=== PATIENT | male | born 1975 | race Caucasian/White ===

== ENCOUNTER 2021-01-08 08:36 | Day surgery (SDC) | payer BC ==
[2021-01-08] MEDS ORDERED: propofoL 200 MG/20 ML VIAL IV ONE (08:59)
[2021-01-08] MEDS ORDERED: LIDOCAINE 1% MPF 5 ML VIAL ONE (08:59)
[2021-01-08] MEDS ORDERED: FENTANYL CITR 100 MCG/2 ML ONE ×2 (08:59→10:05)
[2021-01-08] MEDS ORDERED: MIDAZOLAM HCL 2 MG/2 ML INJ ONE ×2 (08:59→10:35)
[2021-01-08] MEDS ORDERED: dexAMETHasone 10 MG/ML VIAL ONE (08:59)
[2021-01-08] MEDS ORDERED: BUPIVACA 0.25%/EPI 0.0005% MDV 50 ML VIAL ONE (09:04)
[2021-01-08] MEDS ORDERED: CEFAZOLIN/SWI 1gm 1 GM/10 ML SYR ONE (09:07)
[2021-01-08] MEDS ORDERED: Ringers Lactate 1,000 ML IV ONE (09:07)
--- NOTE | 2021-01-08 10:15 | P.OP ---
Preoperative diagnosis: Incarcerated Umbilical Hernia Postoperative diagnosis: Incarcerated Umbilical Hernia Primary procedure: Open Umbilical Hernia Repair with mesh Anesthesia: GETA + Local Estimated blood loss: <10cc Specimen: hernia contents - adipose Findings: Incarcerated Umbilical Hernia ~2cm in size Complications: None Implants: 4.3 cm Bard Ventralex mesh Transferred to: Recovery Room Condition: Good
[2021-01-08] MEDS ORDERED: KETOROLAC 30 MG/ML INJ ONE (10:18)
--- NOTE | 2021-01-08 10:51 | OP ---
Date of Procedure: 01/08/2021 Surgeon: Ellis Rick MD, Preoperative Diagnosis: Incarcerated umbilical hernia. Postoperative Diagnosis: Incarcerated umbilical hernia. Procedure Performed: Open umbilical hernia repair with mesh. Anesthesia: General endotracheal plus local with 0.25% Marcaine with epinephrine. Estimated Blood Loss: Less than 10 mL. Specimens: Hernia contents, adipose tissue. Findings: Incarcerated umbilical hernia approximately 2 cm in size. Complications: None. Implants: 4.3 cm Bard Ventralex mesh. Disposition: The patient was transferred to the recovery room in good condition. Procedure In Detail: After informed consent was obtained, the patient was brought to the operating r oom, prepped and draped in the usual sterile fashion after adequate anesthesia achieved. An infraumb ilical area was anesthetized with 0.25% Marcaine and sharply incised in a curvilinear fashion inferio r to the umbilicus down to subcutaneous tissue with a 15 blade. Electrocautery was used to dissect d own through subcutaneous tissues and blunt dissection continued down to dissect circumferentially eden und the incarcerated umbilical hernia which had adipose tissue contained within. The dissection cont inued down bluntly to the layer of the fascia. The hernia sac was then opened at this point and adip ose tissue was appreciated. This was irreducible at this point and as such, it was ligated and sent off for pathologic examination as debridement tissue. At this point, I was able to reduce the hernia back to the preperitoneal space. I removed the open hernia sac in its entirety at this point and I dissected down into the preperitoneal space using digital manipulation. I was able to push the prepe ritoneal fat back circumferentially around and with combination of electrocautery and blunt dissectio n, I was able to clear landing zone for approximately 4.3 cm Bard Ventralex mesh. After the preperit umana space was finger swept clean, there was no bleeding or hemostatic required. I then brought the 4.3 cm Bard Ventralex mesh onto the field and securing it circumferentially with 4-0 PDS sutures cir cumferentially around the 2 cm opening in a parachute fashion. I then placed the mesh in the preperi toneal position and tied down the sutures at this point. The mesh was in good apposition to the ante rior abdominal wall. At this point, I closed the fascia overlying this mesh with a running 0 P[address] sut ure in a running fashion with good apposition and approximation of tissues. I then cut to sail/strap of the mesh at this point and irrigated the area copiously. I then closed the dermal layer with int errupted 3-0 Vicryl sutures and closed the skin with 4-0 Monocryl in a running fashion. Dermabond wa s placed over top. The patient tolerated the procedure well without any evidence of complication and transferred to PACU in good condition. All counts were correct at the end of the case. JESSICA/RONALD Voice ID: [id number] Report ID: [id number]
[2021-01-08] MEDS ORDERED: MORPHINE 4 MG/ML SYR ONE (11:01)
[2021-01-08 11:42] VITALS: TEMP 97.1
[2021-01-08] MEDS ORDERED: HYDROCODONE/APAP 7.5/325 MG TAB ONE (11:45)
[2021-01-08 12:06] VITALS: O2SAT 98
[2021-01-08 12:31] VITALS: BP 118/60
== END 2021-01-08 12:25 | disposition home or self-care (01) ==
LOC: OR 08:36
PROVIDERS: ATTEND Surgery
PROC: 0WUF0JZ Supplement Abdominal Wall with Synthetic Substitute, Open Approach (ICD-10-PCS; principal; 2021-01-08 10:30)
DX: K42.0 Umbilical hernia with obstruction, without gangrene (principal); Z20.822 Contact with and (suspected) exposure to COVID-19
CPT/HCPCS: 88302; 49587; U0002; J2704; J2250; J3010 ×2; J1100; J0690; J7120